=== PATIENT | male | born 1925 | race Caucasian/White ===

== ENCOUNTER 2016-07-09 02:59 | Inpatient (IN) | payer MEDICARE, OTHER ==
[~2016-07-09] VITALS: Ht 172.7 cm; Wt 89.6 kg
--- NOTE | ~2016-07-09 | ECH ---
Transthoracic Echocardiography Report (TTE) Demographics Patient Name ANITHA VIZCARRA Date of Study 07/09/2016 Patient Number [id number] Visit Number [id number] Date of 1925 Room Number 421 Accession Number [id number] Gender Male Age 89 year(s) Referring Vero Stein Log Hooker Arely Luna [facility] Physician Physician Interpreting Rosa Londono MD Summer Counselor Physician Supervising Ordering Physician Vero Stein MD/MLP Nurse Stress Sweep Press Operator Conclusions Summary Technically fair exam. The estimated left ventricular ejection fraction is 45%. Segmental wall motion abnormalities noted. Mild left ventricular hypertrophy. Diastolic assessment reveals Grade I diastolic dysfunction. Bubble study was done, there is no evidence for a PFO or ASD. Mild mitral regurgitation by color Doppler. There is mild aortic regurgitation by color Doppler. Mild tricuspid regurgitation by color Doppler. There is mild pulmonary hypertension. The pulmonary pressure (RVSP) is 39 mmHg. Procedure Type of Study TTE procedure:Echo Complete SF. Procedure Date Date: 07/09/2016 Start: 11:31 AM Technical Quality: Adequate visualization Indications:Acute CT and TIA. Appropriate Use Criteria: 9 Contrast Medium: Bubble Study. Height: 68 inches Weight: 198 pounds BSA: 2.04 m Rhythm: Within normal limits HR: 68 bpm BP: 129/78 mmHg M-Mode/2D Measurements LV Diastolic Dimension: 4.78 cm LV Systolic Dimension: 3.36 cm LV Septum Diastolic: 0.89 cm LV PW Diastolic: 1.22 cm AO Root Dimension: 3.15 cm Cardiac Output: 4.62 l/min LA Dimension: 4.35 cm Cardiac Index: 2.26 l/min*m RV Diastolic Dimension: 2.7 cm LA volume index: 32 ml/m LVOT: 2.08 cm LVOT VTI: 20 cm RV Base: 2.4 cm LV Stroke volume: 67.92 ml RV Mid: 1.7 cm LV Stroke volume index: 33.29 ml/m RV Length: 8.2 cm TAPSE: 2.4 cm TDI-S': 0.9 cm/s Doppler Measurements AV Peak Velocity: 1.7 m/s MV Peak E-Wave: 0.85 m/s AV Peak Gradient: 11.56 mmHg MV Peak A-Wave: 1.42 m/s AV Mean Gradient: 5.76 mmHg MV E/A Ratio: 0.6 LVOT Peak Velocity: 0.85 m/s MV P1/2t: 71.8 msec AV Area (Continuity):1.98 cm AV P1/2t: 265.4 msec MV Deceleration Time: 247.4 msec TR Velocity:2.9 m/s MV Area (PHT): 3.07 cm TR Gradient:33.66 mmHg Estimated RAP:5 mmHg Estimated PASP: 38.66 mmHg Estimated RVSP: 39 mmHg RA Area: 12.98 cm Findings Left Ventricle The left ventricle is normal in size . Mild left ventricular hypertrophy. Diastolic assessment reveals Grade I diastolic dysfunction. Right Ventricle Normal right ventricle structure and function. Left Atrium Normal left atrial size. Bubble study was done, there is no evidence for a PFO or ASD. Right Atrium Normal right atrial size. Mitral Valve Mild thickening of the mitral valve leaflets. Mild calcification of the mitral valve. Mild mitral regurgitation by color Doppler. Aortic Valve The aortic valve is moderately sclerotic. There is mild aortic regurgitation by color Doppler. Tricuspid Valve Normal tricuspid valve structure and function. Mild tricuspid regurgitation by color Doppler. There is mild pulmonary hypertension. The pulmonary pressure (RVSP) is 39 mmHg. Pulmonic Valve The pulmonic valve is not well visualized. Pericardial Effusion No evidence of pericardial effusion. Miscellaneous Visualized portions of the aortic root and ascending aorta appear normal in size. Pleural Effusion No evidence of pleural effusion. Contractility Score LV regional wall motion:(0-Non visualized 1-Normal 2-Hypokinesis 3-Akinesis 4-Dyskinesis 5-Aneurysm) Signature
--- NOTE | ~2016-07-09 | CATH ---
Cardiac Diagnostic Report Demographics Patient Name ENGLISH ANITHA Harper Gender Male Date of 1925 Age 89 year(s) Patient Number [id number] Date of Study 07/10/2016 Visit Number [id number] Room Number 421 Corporate ID Ht 172.72 cm Wt 89.81 kg Accession Number [id number] BSA 2.04 m kg/m Referring Vero Stein Primary Physician Physician MD oRwena Shelley MD Secondary Physician Physician Jack Diagnostic Daphney PARIS Assisting Physician Physician Jack Interventional Daphney PARIS Physician Associate Professor Of Musicology Physician Jack Findings and Conclusions Diagnostic Findings and Conclusion Extreme tortuosity of all his coronary arteries. Severe single vessel LAD disease. Diagnostic Recommendations Medical therapy. Follow up with [facility] provider 7 days post discharge. Procedure Description The patient was brought to the diagnostic cardiac catheterization laboratory in the fasting, non-sedated state. Informed consent was obtained in the written and verbal form after the risks and benefits were explained. The patient had no further questions and agreed to proceed. The planned puncture-incision site(s) were shaved and prepped with ChloraPrep and draped in the usual sterile manner. Conscious sedation, supplemental oxygen, and pain control medications were delivered by a registered nurse under physician guidance. Surface ECG rhythm, blood pressure measurement, and pulse oximetry were monitored throughout the procedure. Arterial access. The right radial access site was infiltrated with lidocaine. The radial vessel was entered with the Seldinger technique. A 6 Fr sheath was advanced into the vessel and used for catheter placement. Selective left coronary angiography. A TIG catheter was advanced into the left coronary vessel ostium under Fluoroscopic guidance. Contrast was injected by hand. Images were obtained in multiple projections. Selective right coronary angiography. A TIG catheter was advanced into the right coronary vessel ostium under fluoroscopic guidance. Contrast was injected by hand. Images were obtained in multiple projections. Arterial artery hemostasis was achieved with 11 cc air in TR Band. The patient was transferred back to the PCU nursing floor via cart accompanied by a nurse. The patient left the laboratory in stable condition. Diagnostic Cath Status: Urgent Procedure Procedure Type Diagnostic procedure:Angiography:, Coronary Angios Indications: NSTEMI, Hyperlipidemia and Hypertension. The procedure was explained in detail to the patient. Risks, complications and alternative treatments were reviewed. Written consent was obtained. Medications Reviewed with Patient prior to Procedure. Complications: No Complication. Angiographic Findings Dominance: Right Cardiac Arteries and Lesion Findings LMCA: Abnormal. Lesion on LMCA: Mid subsection.30% stenosis . LAD: Abnormal. Lesion on Prox LAD: 95% stenosis . Lesion on Mid LAD: 99% stenosis . Pre procedure MATT II flow was noted. The lesion showed severe tortuosity.Culprit lesion. LCx: Abnormal. Lesion on Mid CX: 60% stenosis .The lesion showed severe tortuosity. RCA: Abnormal. Lesion on Mid RCA: Proximal subsection.50% stenosis .The lesion showed severe tortuosity. Lesion on Mid RCA: Mid subsection.60% stenosis .The lesion showed severe tortuosity. Coronary Tree Procedure Data Procedure Date Date: 07/10/2016Start: 08:14 AMEnd: 08:50 AM Entry Locations - Percutaneous access was performed through the Right Radial artery (Primary location). A 6 Fr sheath was inserted. Hemostasis was successfully obtained using a TR band. Closure Comments: 11 cc air. Procedure Medications Order and Administration + + +-------+--------+ !Time !Medication !Dosage !Route ! + + +-------+--------+ !07/10/2016 !Fentanyl !25 mcg !I.V. ! !08:10 AM ! ! ! ! + + +-------+--------+ !07/10/2016 !Versed !2 mg !I.V. ! !08:10 AM ! ! ! ! + + +-------+--------+ !07/10/2016 !Oxygen !4 l/min!NC ! !08:14 AM ! ! ! ! + + +-------+--------+ !07/10/2016 !SF Radial Cocktail: 200mcg Nitro, 2.5 mg ! !I.A. ! !08:16 AM !Verapamil, 5000u Heparin ! ! ! + + +-------+--------+ Devices Used - A6F TIG CATHETERwas used for:Left coronary angiography. - A6F TIG CATHETERwas used for:Right coronary angiography. - ACATH 6FR PIG 145 110CM CATHETERwas used for:LV Pressures. Contrast Material - Isovue 30974 ml Fluoroscopy Time: Diagnostic: 9:48 minutes. Total: 9:48 minutes. Fluoroscopy Dose: Diagnostic: 1218 mGy. Total: 1218 mGy. Estimated Blood Loss: 5 ml. Medical History Allergies - No known allergies. Risk Factors The patient risk factors include:cerebrovascular disease, hypercholesterolemia, hypertension, last creatinine: 1.5 mg/dl, creatinine clearance: 43.24 ml/min and dyslipidemia. Admission Data Admission Date: 07/09/2016 Admission Time: 04:57 AM Insurance Payors: Medicare. Clinical Evaluation Leading to Procedure - The patient's CAD presentation was assessed as: Non-STEMI. 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 Anti-anginal medications were prescribed during the past two weeks. The medications are: Beta Blockers and Ca channel Blockers. Diagnosed on 07/09/2016 11:08 AM. - The patient's CAD presentation was assessed as: Non-STEMI. - The patient's anginal syndrome during the past two weeks was assessed as: Class III according to the [place] Cardiovascular Society Classification System (CCS). Anti-anginal medications were prescribed during the past two weeks. The medications are: Beta Blockers and Ca channel Blockers. Hemodynamics Condition: Rest O2 Consumption: Estimated: 231.53Heart Rate: 71 bpm Pressures (mmHg) +-----+ + !Site !Pressure ! +-----+ + !AO !81/49 (63) ! +-----+ + Shunts Oxygen Values O2 Consumption 231.53 Discharge Data Discharge Date: 07/11/2016 Hospital Status: Inpatient Signatures
--- NOTE | 2016-07-10 08:01 | HP ---
ADMIT: 07/09/2016 RM/LOC: 421 [facility] MR#: [id number] [facility]#: [id number] [address] [facility] [address] [place] [id number] [address] VI[address] [place] [address] History and Physical SEX: M AGE: 89 : 1925 DATE OF SERVICE: HISTORY OF PRESENT ILLNESS: Anitha is an 89-year-old white gentleman who is from [place], [place]. His has a home here in [place], she was here during business. He said that he felt well until about 9:30 this evening. He developed chest pain, right neck and jaw pain. He was brought to the emergency room for further evaluation. In the ER, blood pressure was 155/92, his SaO2 was 95%. His heart rhythm was sinus. He was afebrile. He was evaluated and found to have evidence of elevated troponin and was admitted for continued evaluation and care. PAST MEDICAL HISTORY: 1. History of recent ER visit in [place] with memory loss, was in the emergency room and discharged home, unsure of the results. 2. History of gastroesophageal reflux disease. 3. Hyperlipidemia. 4. Carotid endarterectomy. 5. History of cataract surgery. 6. Prostate surgery. 7. BPH. 8. History of right total hip. 9. Hypertension. SOCIAL HISTORY: He lives with his . He does not smoke or drink alcohol. FAMILY HISTORY: Noncontributory. REVIEW OF SYSTEMS: Reports that he had this episode of memory loss, but has felt relatively well up until yesterday evening when his symptoms started. PHYSICAL EXAMINATION: GENERAL: He is pain free at this time. He is alert, articulate. HEENT: Normal. HEART: Regular rhythm without murmur or rub. LUNGS: Clear, but diminished to auscultation. ABDOMEN: Soft, nontender, and nondistended. EXTREMITIES: Trace edema. LABORATORY AND X-RAY DATA: In the emergency room, his laboratory assessment showed a sodium of 138, potassium 3.8, BUN and creatinine 27 and 1.7, lipase of 128, troponin 2.94, BNP 4313. White count 8.1, hemoglobin 14.7, platelet count 181,000. Chest x-ray shows cardiomegaly. His EKG shows sinus rhythm with prolonged MO interval, probably left atrial enlargement, right bundle- ADMIT: 07/09/2016 RM/LOC: 421 [facility] MR#: [id number] [address] [facility] [address] [place] [id number] ANITHA VIZCARRA [address] [address] History and Physical SEX: M AGE: 89 : 1925 branch block, and questionable inferior wall NC, age indeterminate. ASSESSMENT AND PLAN: Admission of an elderly white male with: 1. Elevation in cardiac enzymes, this is an issue with a non-ST segment elevation myocardial infarction. Elevated troponin. We will ask Cardiology to see. Get an echocardiogram of his heart. Continue his heparin at this time. 2. Recent ER visit, [facility], memory loss, we will get those records for our review. 3. Renal insufficiency, creatinine of 1.7, do not have any other lab values. 4. History of benign prostatic hypertrophy. He is hemodynamically stable at this time. We will await further assessment from Cardiology. Anna Pham MD/ jordan JOB #: [id number] CC: Anna Pham, Attending Physician Anna Pham, Family Physician
--- NOTE | 2016-07-12 09:47 | CO ---
ADMIT: 07/09/2016 RM/LOC: 421 [facility] MR#: [id number] [facility]#: [id number] [address] [address] ANITHA VIZCARRA [address] [place] [address] Consultation SEX: M AGE: 89 : 1925 DATE OF CONSULTATION: 07/09/2016 ATTENDING PHYSICIAN: Anna Pham CONSULTING PHYSICIAN: Willa Kennedy MD REASON FOR CONSULTATION: Elevated serum creatinine. HISTORY OF PRESENT ILLNESS: The patient is a pleasant, 89-year-old gentleman, who was admitted to the hospital last night with chief complaint of chest pain. He was noted to have an NSTEMI and is being planned for a cardiac catheterization. He is accompanied to the room at this time by his son and his [id number]. He is chest pain-free at this time. Denies any dyspnea. Denies any urinary complaints. He denies any abdominal complaints. Denies any skin rash or nodules. He does have a history of dyslipidemia as well as hypertension. He was noted to have a creatinine of 1.7 upon admission. He did have a visit in [facility] a couple of weeks ago and his creatinine was 2.0. Review of his external records reveals that his creatinine was 1.56 in March 2016. His urinalysis previously was noninflammatory without any hematuria or proteinuria. REVIEW OF SYSTEMS: A complete review of systems was negative in detail except as mentioned in the history of present illness above. PAST MEDICAL HISTORY: 1. Hypertension. 2. Hyperlipidemia. 3. Carotid artery endarterectomy. 4. Cataract surgery. 5. BPH. 6. Right hip surgery. 7. GERD. 8. Peripheral vascular disease. SOCIAL HISTORY: He lives in [place], [place]. He does not use any tobacco, alcohol, or recreational drugs. FAMILY HISTORY: No family history of chronic kidney disease or renal replacement therapy. MEDICATIONS: Reviewed and addressed in the chart. ALLERGIES: NO KNOWN DRUG ALLERGIES. PHYSICAL EXAMINATION: VITAL SIGNS: Temperature 96.8 Fahrenheit, pulse 70, blood pressure 152/88. GENERAL: He is comfortable. HEENT: Head is nontraumatic and normocephalic. Extraocular movements are intact. No conjunctival pallor. Moist mucosa. ADMIT: 07/09/2016 RM/LOC: 421 [facility] MR#: [id number] [address] [address] AN[address] VIZCARRA [address] [place] [address] Consultation SEX: M AGE: 89 : 1925 NECK: Supple without any JVD. CHEST: With bibasilar crackles. CVS: Regular rate and rhythm. S1, S2 heard. No rubs, murmurs, or gallops. ABDOMEN: Soft and nontender. EXTREMITIES: No edema. SKIN: No rash or nodules. NEUROLOGIC: Alert, awake, and oriented x3. He is able to move all extremities. PSYCHIATRIC: Affect and memory within normal limits. MUSCULOSKELETAL: Major joints within normal limits. Range of motion within normal limits. LABORATORY DATA: Reviewed. BMP with sodium of 139, potassium 3.8, CO2 of 24, creatinine 1.7. His CK level most recently was 606 with troponin of 36.4. His hemoglobin is 14.7, white count 8.1 with a platelet count of 181. Renal ultrasound showed an atrophic left kidney without any evidence of hydronephrosis on the right side. Chest x-ray without any acute cardiopulmonary process. ASSESSMENT AND PLAN: 1. Chronic kidney disease stage 3-reviewed previous records. Baseline creatinine appears to be around 1.5 to 1.6. His urinalysis has been noninflammatory previously and his renal ultrasound does not show any obstructive changes. Monitor kidney function during this hospitalization. 2. Hypertension-I will resume his Bystolic as well as amlodipine. 3. Contrast-induced nephropathy prophylaxis-he is at risk of acute kidney injury from intravenous contrast. However, with this NSTEMI, this procedure is medically necessary. I will hydrate him prior to the procedure with bicarbonate-containing fluids. I will also use n- acetylcysteine. I recommend iso-osmolar contrast at the lowest volume possible in order to mitigate his risk for contrast-induced nephropathy. I will monitor his kidney function postprocedure. Thank you this consultation. Please do not hesitate to contact with any questions. Willa Kennedy MD/ jordan JOB #: [id number] CC: Anna Pham, Attending Physician Anna Pham, Family Physician
[2016-07-12] MEDS ORDERED: BYSTOLIC5 MG PO (18:44)
[2016-07-12] MEDS ORDERED: BYSTOLIC10 MG PO (18:44)
[2016-07-12] MEDS ORDERED: ASPIRIN EC81 MG PO (18:44)
[2016-07-12] MEDS ORDERED: PROSCAR DPS5 MG PO (18:45)
[2016-07-12] MEDS ORDERED: NORVASC5 MG PO (18:45)
[2016-07-12] MEDS ORDERED: LIVALO2 MG PO (18:45)
[2016-07-12] MEDS ORDERED: FLOMAX DPS0.4 MG PO (18:45)
[2016-07-12] MEDS ORDERED: EX-LAX15 MG PO (18:46)
[2016-07-12] MEDS ORDERED: DULCOLAX-DPS5 MG PO (18:46)
[2016-07-12] MEDS ORDERED: PROTONIX40 MG PO (18:51)
[2016-07-12] MEDS ORDERED: PLAVIX75 MG PO (18:51)
[2016-07-12] MEDS ORDERED: ZESTRIL DPS5 MG PO (18:51)
[2016-07-12] MEDS ORDERED: NITROSTAT0.4 MG SL (18:52)
--- NOTE | 2016-07-13 19:26 | ER ---
ADMIT: 07/09/2016 RM/LOC: 421 [facility] [id number] [id number] [address] [address] AN[address] VIZ[address]RA [address] [place] [address] Emergency Room Report SEX: M AGE: 89 : 1925 DATE: 07/09/2016 CHIEF COMPLAINT: Chest pain. HISTORY OF PRESENT ILLNESS: The patient is an 89-year-old male, who awoke at 9:00 p.m. with substernal chest pressure radiating to his neck associated with mild nausea. Denies any diaphoresis or shortness of breath. Did take a full adult aspirin at that time, arrived 6 hours later stating the pain was better with eructations. Otherwise, no exacerbating or relieving maneuvers. PAST MEDICAL HISTORY: ILLNESSES: GERD, hypertension, hyperlipidemia, BPH, peripheral vascular disease. OPERATIONS: Carotid endarterectomy, right total hip arthroplasty, right mastoidectomy. ALLERGIES: NONE. MEDICATIONS: Please see nurse's MAR. SOCIAL HISTORY: Nonsmoker, nondrinker, no illicit drugs. FAMILY HISTORY: Negative per chart review. REVIEW OF SYSTEMS: A 12-point review of systems negative for all other systems, illnesses, or operations except as outlined above. PHYSICAL EXAMINATION: VITAL SIGNS: Temp 96.9, pulse 84, respirations 16, BP 155/92, SaO2 of 95% on room air. GENERAL: Anxious, non-diaphoretic, without jaundice or icterus. HEENT: Normocephalic. No evidence of epistaxis, rhinorrhea, or otorrhea. NECK: Supple without lymphadenopathy or thyromegaly. CHEST: Clear. Breath sounds equal. HEART: Regular rate and rhythm without murmur, gallop, or edema. ABDOMEN: Soft, obese, nontender, nondistended without mass or megaly. Bowel sounds hypoactive. EXTREMITIES: No evidence of Homans sign, synovitis, or dermatitis. NEURO: EOMI. PERRLA. No evidence of drift, dysarthria, or ataxia. Gait normal. MENTAL STATUS: Alert, oriented, and cooperative without delusions, hallucinations, or abnormal thought content. MEDICAL DECISION MAKING: EKG showed sinus rhythm with right bundle-branch block and age-indeterminate inferior infarct, no prior tracing. Chest x-ray, negative. Normal CBC, CMP, except creatinine 1.7, glucose 125, lactic 1.3, CRP 1.55. Normal CK, elevated troponin at 2.94, elevated D-dimer at 0.96. The patient was given 2 nitros with complete relief, 1 inch nitro paste applied, heparin ACS protocol. Discussed case with Dr. Araujo, who agreed and gave orders to nursing staff. Due to the patient's presentation, ADMIT: 07/09/2016 RM/LOC: 421 [facility] MR#: [id number] [address] [address] ANITHA VIZCARRA [address] [place] [address] Emergency Room Report SEX: M AGE: 89 : 1925 findings, and intervention, 30 minutes of critical care is warranted. DIAGNOSES: 1. [id number] myocardial infarction. 2. Peripheral vascular disease, status post carotid endarterectomy. 3. Chronic kidney disease. 4. Hypertension. 5. Hyperlipidemia. RECOMMENDATION: Admit inpatient telemetry for Dr. Araujo. ADMISSION/DISCHARGE CONDITION: Improved. CODE STATUS: The patient is a full code. Peter Grewal MD/ jordan JOB #: [id number] CC: Anna Pham MD, Attending Physician Anna Pham MD, Family Physician Manisha Araujo MD
--- NOTE | 2016-07-13 20:57 | CO ---
ADMIT: 07/09/2016 RM/LOC: 421 [facility] MR#: [id number] [address] [address] [place] [address] [place] [address] Consultation SEX: M AGE: 89 : 1925 DATE OF CONSULTATION: 07/09/2016 ATTENDING PHYSICIAN: Anna Pham CONSULTING PHYSICIAN: Jack Shelley MD REASON FOR CONSULTATION: Elevated troponin. HISTORY OF PRESENT ILLNESS: This is an 89-year-old male with a past medical history significant for hypertension; hyperlipidemia; and carotid artery stenosis, status post carotid endarterectomy, approximately 5 years ago; who presented to the Emergency Department this morning with complaints of chest pain. The patient describes the discomfort as midchest pressure with radiation to the left side of the jaw. He is also complaining of some diaphoresis and nausea but no vomiting. He took an aspirin earlier this morning but the discomfort continued, so came to the Emergency Department. Upon arrival to the ER, blood work showed an initial troponin of 2.9, and some mild ST changes on his EKG along with right bundle branch block. He was then started on heparin drip at that time. He is currently rating his pain as 0. His son also reports that he was seen in the [facility] Department about a week and a half ago for some acute confusion. Records faxed from [facility] from this visit show a negative CT of his head and labs significant for creatinine of 2.0. He had mildly-elevated white count of 11.8, and a negative UA. PAST MEDICAL HISTORY: 1. Hypertension. 2. Hyperlipidemia. 3. Coronary artery stenosis on the left s/p CEA 4. BPH. 5. He has no known cardiac history other than the carotid stenosis. PAST SURGICAL HISTORY: 1. Right total hip arthroplasty. 2. Left carotid endarterectomy. MEDICATIONS: 1. Aspirin 325 mg daily. 2. Bystolic 10 mg every other day. 3. Bystolic 5 mg every other day. 4. Amlodipine 5 mg daily. 5. Livalo 2 mg daily. 6. Finasteride 5 mg at bedtime. 7. Tamsulosin 0.4 mg at bedtime. 8. Senokot 50 mg daily as needed. 9. Dulcolax 10 mg daily as needed. ALLERGIES: NONE. ADMIT: 07/09/2016 RM/LOC: 421 [facility] MR#: [id number] [address] [address] ANITHA VIZCARRA [address] [place] [address] Consultation SEX: M AGE: 89 : 1925 SOCIAL HISTORY: He denies any tobacco, alcohol, or illegal drug use. He does live in [place] and sees a doctor in [place], [place]. His has a house here in [place], which is where he was staying at last night. FAMILY HISTORY: His dad had an MD at the age of 90. His mom in her 90s as well from an unknown cause. REVIEW OF SYSTEMS: GENERAL: Denies fatigue, fever, chills, sweats, rash, or weight loss. EYES: Denies double vision, blurred vision, cataracts, or glaucoma. ENT: Denies hearing loss or problems with nose, mouth or throat. PULMONARY: Denies cough, sputum production, asthma, emphysema or bronchitis. Denies snoring loudly, wakefulness at night, or fatigue upon awakening. GASTROINTESTINAL: Denies heartburn or difficulty swallowing. No change in bowel habits. Denies dark or bloody stools. No history of ulcers, hiatal hernia, or gallbladder or liver disease. GENITOURINARY: Denies dysuria, hematuria, nocturia, urinary tract infection, or kidney stones. Other than BPH, denies history of renal insufficiency or failure. MUSCULOSKELETAL: Some left hip pain. Otherwise, negative. ENDOCRINE: Denies history of thyroid dysfunction or diabetes. HEMATOLOGIC: Denies history of anemia, easy bruising, or cancer. NEUROLOGIC: He does have a history of possible TIA for which he was seen in the [facility] approximately 2 weeks ago but this has resolved. Otherwise, negative. PSYCHIATRIC: Denies history of mental illness or feelings of depression. PHYSICAL EXAMINATION: VITAL SIGNS: Blood pressure 129/78, pulse 64, respirations 18, temp 98, saturating 96% on 2 L. GENERAL: Alert and oriented x3. No acute distress. HEENT: Nose clear. Atraumatic. Mucous membranes are moist. NECK: Jugular venous pressure is normal. No bruits. HEART: Regular rate and rhythm. He. No murmurs, gallops, or rubs. ABDOMEN: Soft and nontender. No organomegaly or abdominal bruits. EXTREMITIES: No clubbing, cyanosis, or edema. NEURO: Intact. PSYCH: Within normal limits. ASSESSMENT AND PLAN: 1. [id number] elevation myocardial infarction. His EKG shows right bundle branch block and some lateral ST depression. His second troponin increased to >30, but he is currently chest pain free. We will go ahead and ADMIT: 07/09/2016 RM/LOC: 421 [facility] MR#: [id number] [address] [place] [id number] ANITHA VIZCARRA [address] [address] Consultation SEX: M AGE: 89 : 1925 check an echo and plan for a heart catheterization tomorrow. We will also optimize his medications. The heart catheterization risks and benefits have been discussed with the patient and he does agree to proceed with this in the morning. We will go ahead and continue to trend his enzymes and EKGs this afternoon. We will also add hemoglobin A1c and lipids to his lab work up. 2. Hypertension. Continue current medications. 3. Hyperlipidemia. Continue current medications. 4. History of carotid artery stenosis. He does have a carotid Doppler ordered for today. 5. Recent transient ischemic attack. 6. Chronic kidney disease. Plan to consult Dr. Kennedy. Sally Mccullough DO Resident / Jack Shelley MD / jordan JOB #: [id number] CC: Anna Pham, Attending Physician Anna Pham, Family Physician
--- NOTE | 2016-07-23 08:22 | DS ---
ADMIT: 07/09/2016 RM/LOC: 421 [facility] MR#: [id number] [facility]#: [id number] [address] [address] [address] [place] [address] General Discharge Summary SEX: M AGE: 89 : 1925 ADMISSION DATE: 07/09/2016 DISCHARGE DATE: 07/11/2016 DISCHARGE DIAGNOSES: 1. Non-ST elevated acute myocardial infarction. 2. Acute renal failure on chronic renal failure. 3. Hypertension. 4. Hyperlipidemia. 5. History of carotid artery stenosis, status post carotid endarterectomy. 6. Benign prostatic hypertrophy. 7. Status post heart catheterization. HISTORY OF PRESENT ILLNESS: Well documented in his H and P. LABORATORY AND RADIOGRAPHIC ASSESSMENT: On admission, his white count was 8.1, hemoglobin 14.7, platelet count 181,000. His PTT was 28. His D-dimer was 0.96. Sodium of 138, potassium 3.5, BUN and creatinine of 20 and 1.5. His HDL cholesterol is 68, cholesterol is 194, LDL cholesterol was 110. C- reactive protein 1.55 with glycosylation. Hemoglobin was 6.0. Chest x-ray was negative. Ultrasound of carotids showed no hemodynamics, significant stenosis. Ultrasound of kidney showed atrophy to left kidney with compare to the right. No hydronephrosis on the right or left. Inferior vena cava and aorta were not visualized well. Echocardiogram showed technically fair exam. Ejection fraction is 45%. Subsegmental wall motion abnormalities were noted. Mild left ventricular hypertrophy. Diastolic assessment reveals grade 1 diastolic dysfunction. Bubble study, there was no evidence of PFO or ASD. Mild mitral regurgitation by color Doppler. There is mild aortic regurg by color Doppler, mild tricuspid regurg, and there is mild pulmonary hypertension. HOSPITAL COURSE: This elderly gentleman who lives near [place], [place], was admitted to [facility] with development of anterior chest pain and chest pressure. He did have an episode of diaphoresis. On admission, his troponin was 2.94, BNP 4313. His creatinine was 1.7. He was started on heparin in the ER and was given aspirin. He was made n.p.o. In evaluation, he had a history of TIA like event and was evaluated at [facility] in [place], [place], approximately a week ago. Arrangements were made so that we could get that medical records for review. Did ask Nephrology to see if he had evidence of kidney disease and concerns as he underwent further assessment and a heart catheterization. Continued to do well and was prepared for heart catheterization by Nephrology with normal saline with bicarbonate and Mucomyst. He underwent further assessment with heart catheterization on 07/10. He had extremely torturous vessels, culprit LAD is not available for PCT secondary to tortuous vessels. Medical management. He continued to do well. Creatinine remained stable. He was ADMIT: 07/09/2016 RM/LOC: 421 [facility] MR#: [id number] [address] [place] [id number] ANITHA VZICARRA [address] [address] General Discharge Summary SEX: M AGE: 89 : 1925 subsequently discharged home. We will have followup with myself as well as Dr. Kennedy and Cardiology. I will see him initially and then he will resume care with his primary care physician in [place]. At the time of discharge: 1. Aspirin 81 mg daily. 2. Bystolic 10 mg daily. 3. Flomax 0.4 mg daily. 4. Norvasc 5 mg daily. 5. Plavix 75 mg daily. 6. Protonix 40 mg daily. 7. Lisinopril 5 mg p.o. daily. He was discharged in stable condition. Long-term prognosis is good. Medical management of coronary artery disease. Anna Pham MD/ jordan JOB #: [id number] CC: Anna Pham MD, Attending Physician Anna Pham MD, Family Physician
== END 2016-07-11 14:35 | disposition home or self-care (01) | DRG 281 ==
LOC: ER 02:59 → 4PCU 04:57
PROVIDERS: ADMIT Internal Medicine
PROC: B2111ZZ Fluoroscopy of Multiple Coronary Arteries using Low Osmolar Contrast (ICD-10-PCS; principal; 2016-07-10)
PROC: 4A023N7 Measurement of Cardiac Sampling and Pressure, Left Heart, Percutaneous Approach (ICD-10-PCS; principal; 2016-07-10)
DX: I21.4 Non-ST elevation (NSTEMI) myocardial infarction (principal); N17.9 Acute kidney failure, unspecified; I45.10 Unspecified right bundle-branch block; I73.9 Peripheral vascular disease, unspecified; I25.10 Atherosclerotic heart disease of native coronary artery without angina pectoris; K21.9 Gastro-esophageal reflux disease without esophagitis; I12.9 Hypertensive chronic kidney disease with stage 1 through stage 4 chronic kidney disease, or unspecified chronic kidney disease; N18.3 Chronic kidney disease, stage 3 (moderate); E78.5 Hyperlipidemia, unspecified; N40.0 Benign prostatic hyperplasia without lower urinary tract symptoms; Z96.641 Presence of right artificial hip joint; Z79.82 Long term (current) use of aspirin

== ENCOUNTER 2016-09-17 06:36 | Day surgery (SDC) | payer MEDICARE, OTHER ==
[~2016-09-17] VITALS: Ht 172.7 cm; Wt 88.6 kg
[~2016-09-17 06:36] MED LIST: ASPIRIN EC81 MG PO; BYSTOLIC10 MG PO; BYSTOLIC5 MG PO; DULCOLAX-DPS5 MG PO; EX-LAX15 MG PO; FLOMAX DPS0.4 MG PO; LIVALO2 MG PO; NITROSTAT0.4 MG SL; NORVASC5 MG PO; PLAVIX75 MG PO; PROSCAR DPS5 MG PO; PROTONIX40 MG PO; ZESTRIL DPS5 MG PO
--- NOTE | 2016-09-30 07:03 | HP ---
ADMIT: 09/17/2016 RM/LOC: [facility] MR#: [id number] [address] [address] [address] [place] [address] Pre-OP History and Physical SEX: M AGE: 89 : 1925 DATE OF SERVICE: HISTORY OF PRESENT ILLNESS: Mr. Vizcarra is 89 years old. 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 The lesion has been confirmed by biopsy showing basal cell carcinoma which involved the margins including deep margin of the biopsy specimen. Examination shows a 2 x 2 cm, hard, thickened, deeply invasive lesion adjacent to the helical cartilage tragus and extending to the region of the parotid salivary gland and zygoma. The rationale for wide local resection has been discussed. We have also discussed the need to examine and possibly perform partial salivary gland excision. We discussed the course of the facial nerve and the risks involved with the incision. We have also discussed closure of the area which may require a rotation flap closure of which he is in good understanding. He is in acceptance of the recommendations and the risks. He is admitted at this time for surgical removal, at which time, we will perform frozen section for examination of margins. MEDICATIONS: Prior to admission: 1. Amlodipine. 2. Bystolic. 3. Livalo. 4. Finasteride. 5. Tamsulosin. 6. Sennosides. 7. Dulcolax. 8. Lisinopril. 9. Protonix. 10.Nitroglycerin. His medications of Plavix and aspirin have been discontinued five days prior to this admission. ALLERGIES: NO MEDICINES KNOWN. PAST MEDICAL HISTORY: Hip replacement surgery. REVIEW OF SYSTEMS: GENERAL: Positive for hypertension and history of multiple skin cancer removal. CARDIOVASCULAR: States he has history of hypertension. Also had atherosclerotic heart disease, manifested by recent myocardial infarction. Do not have lower respiratory, gastrointestinal, genitourinary, hematologic, or neurologic disorders. SOCIAL HISTORY: He does not use tobacco and is not exposed to smoke. FAMILY HISTORY: No known anesthetic complications. No coagulopathies. PHYSICAL EXAMINATION: GENERAL: An 89-year-old. HEENT: Pupils are equal. Conjunctivae clear. Laryngeal mobility intact and ADMIT: 09/17/2016 RM/LOC: [facility] MR#: [id number] [facility] [address] [address] [place] [address] [address] [place] [address] Pre-OP History and Physical SEX: M AGE: 89 : 1925 symmetrical. Ear canals are patent and clear. TMs transparent. No middle ear effusion. Nose, mouth, pharynx clear. NECK: No adenopathy. There is visible and palpable lesion in left preauricular, large at 2.2 cm and deeply invasive, extending to the parotid and zygomatic arch region. LUNGS: Clear. HEART: Rhythm is regular. EXTREMITIES: No cyanosis. No edema. IMPRESSION: Basal cell carcinoma, left preauricular, with deep invasion. PLAN: Wide local removal with possible rotation flap closure. Sang Jain MD/ jordan JOB #: [id number] CC: Sang Jain, Attending Physician UNKNOWN, Family Physician
--- NOTE | 2016-10-04 07:11 | OR ---
ADMIT: 09/17/2016 RM/LOC: [facility] MR#: [id number] [address] [address] [address] [address] Operative/Delivery Room Report SEX: M AGE: 89 : 1925 SURGERY DATE: 09/17/2016 SURGEON: Sang Jain MD PREOPERATIVE DIAGNOSIS: Basal cell carcinoma, left preauricular. POSTOPERATIVE DIAGNOSIS: Basal cell carcinoma, left preauricular. OPERATION: Wide local resection, preauricular lesion, left-sided involving skin and subcutaneous tissue extending to parotid fascia. ANESTHESIA: General oral endotracheal. BLOOD LOSS: 10 mL. COMPLICATIONS: None. DESCRIPTION OF PROCEDURE: With the patient in supine position under anesthesia, the head was turned slightly to the right. The left auricle was prepped with ChloraPrep, allowed 3 minutes to dry. The patient was draped sterilely. The lesion had been marked preoperatively and a wide local resection was performed with margins at minimum 1 cm from the edge of the grossly involved tissue. The incision was carried through the dermis to the subcutaneous tissue. Dissection was then continued with sharp and blunt dissection with Franz scissors. Dissection was carried to the level of the parotid fascia. The lesion did not invade the deep margins or the fascia and the lesion was excised at this layer. The wound margins were undermined. Primary closure was able to be performed loosening the tissues from the underlying fascial layer and closing with combination of 3-0 Prolene to the deep tissues and interrupted simple 5-0 Prolene to the skin. There was good hemostasis throughout the procedure and at completion with total blood loss of 10 mL. Bacitracin and dressing were applied. He tolerated this well. He is transferred to recovery room in good condition. Sang Jain MD/ jordan JOB #: [id number] CC: Sang Jain MD, Attending Physician Sang Jain MD, Family Physician
== END 2016-09-17 13:45 | disposition home or self-care (01) ==
LOC: SSS 06:36
PROC: 0JB10ZZ Excision of Face Subcutaneous Tissue and Fascia, Open Approach (ICD-10-PCS; principal; 2016-09-17)
DX: C44.219 Basal cell carcinoma of skin of left ear and external auricular canal (principal); L57.0 Actinic keratosis; I25.2 Old myocardial infarction; I10 Essential (primary) hypertension; K21.9 Gastro-esophageal reflux disease without esophagitis; M19.90 Unspecified osteoarthritis, unspecified site; Z98.890 Other specified postprocedural states; Z79.899 Other long term (current) drug therapy; Z96.649 Presence of unspecified artificial hip joint; Z79.82 Long term (current) use of aspirin; Z79.01 Long term (current) use of anticoagulants

== ENCOUNTER → 2016-10-01 | Outpatient (CLI) | payer MEDICARE, OTHER | END | disposition home or self-care (01) | LOC: RAD.S 14:57 | DX: C44.219 Basal cell carcinoma of skin of left ear and external auricular canal (principal); H61.892 Other specified disorders of left external ear ==